=== PATIENT | male | born 1980 | race Caucasian/White ===

== ENCOUNTER 2017-08-28 16:03 | Emergency (ER) | payer BC, OTHER ==
--- NOTE | 2017-08-28 16:28 | EDM.PDOC ---
ED HPI GENERAL MEDICAL PROBLEM - General Chief Complaint: Back Pain or Injury Stated Complaint: L SIDE AND BACK PAIN Time Seen by Provider: 08/28/17 16:28 - History of Present Illness INITIAL COMMENTS - FREE TEXT/NARRATIVE: 36-year-old male presents with left-sided shoulder blade pain. This started a little over a week ago the patient went to bed and woke up with excruciating pain in this. Last night he tried ibuprofen 800 mg this did not seem to help however he only took it for the one dose. Patient does not have any breathing difficulties patient does not have any numbness or tingling that goes into his neck shoulder or arm he just has a sharp pain under his shoulder blade. Lifting his arm above his head really seems to aggravate it. Deep breathing aggravates it a little as does coughing. The patient has a mild chronic cough this is not getting any worse.. Left Back Pain Score (Numeric/FACES): 6 - Related Data Allergies Allergy/AdvReac Type Severity Reaction Status Date / Time No Known Allergies Allergy Verified 08/28/17 16:26 Home Meds: Home Meds . [No Known Home Meds] 08/28/17 [History] Past Medical History - Past Health History Medical/Surgical History: Denies Medical/Surgical History Social & Family History - Tobacco Use Smoking Status *Q: Never Smoker Second Hand Smoke Exposure: No - Alcohol Use Days Per Week of Alcohol Use: 0 - Recreational Drug Use Recreational Drug Use: No ED ROS GENERAL - Review of Systems Review Of Systems: See Below Constitutional: Reports: No Symptoms Respiratory: Reports: No Symptoms Cardiovascular: Reports: No Symptoms GI/Abdominal: Reports: No Symptoms : Reports: No Symptoms Musculoskeletal: Reports: Back Pain (Mostly under around the left scapula) Neurological: Reports: No Symptoms ED EXAM,LOWER BACK PAIN/INJURY - Physical Exam Exam: See Below Exam Limited By: No Limitations General Appearance: Alert, No Apparent Distress, Other (Vital signs stable no acute distress afebrile) Head: Atraumatic, Normocephalic Neck: Normal Inspection, Supple, Non-Tender, Full Range of Motion. No: Lymphadenopathy (L), Lymphadenopathy (R) Respiratory/Chest: No Respiratory Distress, Lungs Clear, Normal Breath Sounds Cardiovascular: Regular Rate, Rhythm, No Edema, No Murmur GI/Abdominal: Normal Bowel Sounds, Soft, Non-Tender Back Exam: Normal Inspection, Other (Patient is palpatory discomfort around his left scapula this is aggravated by reaching out and above his head). No: CVA Tenderness (L), CVA Tenderness (R) Course - Vital Signs Last Recorded V/S: Last Vital Signs Temp 35.9 C 08/28/17 16:27 Pulse 74 08/28/17 16:27 Resp 18 08/28/17 16:27 BP 117/75 08/28/17 16:27 Pulse Ox 97 08/28/17 16:27 - Re-Assessments/Exams Free Text/Narrative Re-Assessment/Exam: 08/28/17 16:37 Patient has what is most likely a left subscapular strain.. Patient has ibuprofen at home he tried this one time at home without much improvement he agrees to take this 3 times a day and see how he does he will follow-up in the Hospital clinic next week if needed. Departure - Departure Time of Disposition: 16:38 Disposition: Home, Self-Care 01 Clinical Impression: Strain of left subscapularis muscle - Discharge Information Referrals: PCP,None [Primary Care Provider] - Forms: ED Department Discharge Additional Instructions: Return to the emergency room with any questions problems worsening symptoms. Use your ibuprofen 800 mg 3 times a day with meals for discomfort be sure and take it 3 times a day. Follow-up in the Hospital clinic next week for recheck if needed. [phone]
[2017-08-28 16:30] VITALS: BP 117/75
== END 2017-08-28 16:55 | disposition home or self-care (01) ==
LOC: JD.ED 16:03
DX: S46.012A Strain of muscle(s) and tendon(s) of the rotator cuff of left shoulder, initial encounter (principal); X50.0XXA Overexertion from strenuous movement or load, initial encounter
CPT/HCPCS: 99283

== ENCOUNTER 2018-02-06 08:01 | Emergency (ER) | payer BC ==
[2018-02-06 08:37] VITALS: BP 123/84
--- NOTE | 2018-02-06 09:18 | EDM.PDOC ---
ED HPI GENERAL MEDICAL PROBLEM - General Chief Complaint: Chest Pain Stated Complaint: CHEST PAIN SHOULDER PAIN Time Seen by Provider: 02/06/18 08:25 Source of Information: Reports: Patient History Limitations: Reports: No Limitations - History of Present Illness INITIAL COMMENTS - FREE TEXT/NARRATIVE: 37-year-old male with chief complaint of left shoulder pain. 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 He does not recall an injury. States that he first noticed the pain yesterday. Pain seemed worse today. He has pain with arm movements. Pain is located in the back of the left shoulder. Moderate severity. Took Tylenol this morning with no relief. States that he had similar symptoms in the right shoulder several months ago that resolved without intervention. Pain is slightly worse with deep breathing as well. He has a mild cough. No fever. At some point he did have some pain radiating towards the front of his chest but he has no chest pain at this time. He has no additional musculoskeletal pain. No lower extremity pain or swelling. Left Shoulder Pain Score (Numeric/FACES): 7 - Related Data Allergies Allergy/AdvReac Type Severity Reaction Status Date / Time No Known Allergies Allergy Verified 02/06/18 08:20 Home Meds: Home Meds Ibuprofen 800 mg PO TID PRN #40 tablet 02/06/18 [Rx] Past Medical History - Past Health History Medical/Surgical History: Denies Medical/Surgical History Social & Family History - Tobacco Use Smoking Status *Q: Never Smoker Second Hand Smoke Exposure: No - Caffeine Use Caffeine Use: Reports: Soda - Alcohol Use Days Per Week of Alcohol Use: 0 - Recreational Drug Use Recreational Drug Use: No ED ROS GENERAL - Review of Systems Review Of Systems: See Below Constitutional: Denies: Fever Respiratory: Reports: Cough. Denies: Shortness of Breath Cardiovascular: Denies: Chest Pain Endocrine: Reports: No Symptoms GI/Abdominal: Denies: Abdominal Pain Musculoskeletal: Reports: Shoulder Pain Skin: Reports: No Symptoms Neurological: Reports: No Symptoms ED EXAM, GENERAL - Physical Exam Exam: See Below Exam Limited By: No Limitations General Appearance: Alert, WD/WN, No Apparent Distress Eye Exam: Bilateral Eye: Normal Inspection Ears: Normal External Exam Nose: Normal Inspection Throat/Mouth: Normal Inspection, Normal Voice, No Airway Compromise Head: Atraumatic, Normocephalic Neck: Normal Inspection, Supple, Non-Tender, Full Range of Motion Respiratory/Chest: No Respiratory Distress, Lungs Clear, Normal Breath Sounds, Other (Left posterior chest wall tenderness in the mid and upper thoracic area, skin normal, no crepitus) Cardiovascular: Normal Peripheral Pulses, Regular Rate, Rhythm, No Murmur GI/Abdominal: Soft, Non-Tender, No Distention Back Exam: Normal Inspection. No: CVA Tenderness (L), CVA Tenderness (R), Vertebral Tenderness Extremities: Normal Inspection, Other (No left shoulder, humerus, or elbow tenderness. Abduction of the shoulder does reproduce his pain which is located more in the subscapular area. Full range of motion.) Neurological: Alert, Oriented, Normal Cognition, No Motor/Sensory Deficits Psychiatric: Normal Affect, Normal Mood Skin Exam: Warm, Dry, Intact, Normal Color, No Rash Course - Vital Signs Last Recorded V/S: Last Vital Signs Temp 35.7 C 02/06/18 08:05 Pulse 71 02/06/18 08:05 Resp 16 02/06/18 08:05 BP 123/84 02/06/18 08:05 Pulse Ox 98 02/06/18 08:05 - Orders/Labs/Meds Orders: Active Orders 24 hr Category Date Time Status EKG 12 Lead [EKG Documentation Completion] [RC] STAT Care 02/06/18 08:25 Active Chest 2V [CR] Stat Exams 02/06/18 08:25 Taken - Re-Assessments/Exams Free Text/Narrative Re-Assessment/Exam: 02/06/18 09:32 CXR normal. EKG shows NSR, no evidence of acute ischemia/arrhythmia. Departure - Departure Time of Disposition: 09:15 Disposition: Home, Self-Care 01 Clinical Impression: Shoulder pain, left Qualifiers: Chronicity: acute Qualified Code(s): M25.512 - Pain in left shoulder - Discharge Information Prescriptions: Ibuprofen 800 mg PO TID PRN #40 tablet PRN Reason: Pain Instructions: Shoulder Pain Referrals: PCP,None [Primary Care Provider] - Forms: ED Department Discharge Additional Instructions: 1. Follow up with clinic provider if your shoulder doesn't improve. Call [phone]. 2. Take ibuprofen for pain. Take acetaminophen for pain as well - OK to take both. 3. Ice area of pain today and tomorrow. Rest shoulder as much as possible. 4. Return to the ED if you have difficulty breathing, severe pain, or other concerning symptoms. - My Orders Last 24 Hours: My Active Orders 02/06/18 08:25 EKG 12 Lead [EKG Documentation Completion] [RC] STAT Chest 2V [CR] Stat - Assessment/Plan Last 24 Hours: My Active Orders 02/06/18 08:25 EKG 12 Lead [EKG Documentation Completion] [RC] STAT Chest 2V [CR] Stat
--- NOTE | 2018-02-06 16:12 | CR ---
Chest: Two views of the chest were obtained. Comparison: No prior chest x-ray. Heart size and mediastinum are normal. Lungs are clear. Bony structures are unremarkable. Impression: 1. Nothing acute is seen on two-view chest x-ray. Diagnostic code #1
== END 2018-02-06 09:29 | disposition home or self-care (01) ==
LOC: JD.ED 08:01
DX: M25.512 Pain in left shoulder (principal)
CPT/HCPCS: 71046; 71046-26; 93005; 93010; 99284; 99284-25